=== PATIENT | male | born 1945 | race Caucasian/White ===

== ENCOUNTER 2016-08-10 12:50 | Day surgery (SDC) | payer MEDICARE ==
[2016-08-06 12:36] LABS: HEMATOCRIT 46.5 % (40.0-51.0); HEMOGLOBIN 16.6 g/dL (13.6-17.8)
[2016-08-06 12:45] LABS: BUN (BLOOD UREA NITROGEN) 13 MG/DL (6-23); CALCIUM, SERUM 9.6 MG/DL (8.5-10.4); CHLORIDE, SERUM 109 MMOL/L (96-112); CO2 (CARBON DIOXIDE) 28 MMOL/L (24-34); CREATININE 0.97 MG/DL (0.70-1.30); GFR AFRICAN AMERICAN 91 ML/MIN (>=60); GFR NON AFRICAN AMERICAN 78 ML/MIN (>=60); GLUCOSE, SERUM 93 MG/DL (60-99); SODIUM, SERUM 142 MMOL/L (135-148)
--- NOTE | ~2016-08-10 | OP ---
Record Of Operation [facility] [address] [place]. [address] NAME: KAUSHIK BULLARD JR : 43 STATUS : [facility]#: [id number] AGE: 70 ADM/REG DATE : 08/10/16 MR#: [id number] REPORT SERV DATE: 08/10/16 DICTATED BY: Sania WOLF DATE: 08/10/16 REPORT STATUS : Draft TRANSCRIBED BY: ZE DATE: 08/10/16 DATE OF PROCEDURE: 08/10/2016 PREOPERATIVE DIAGNOSES: 1. Chronic nasal airway obstruction. 2. Deviated nasal septum. 3. Bilateral inferior turbinate hypertrophy. 4. Right nasal vestibular stenosis. POSTOPERATIVE DIAGNOSES: 1. Chronic nasal airway obstruction. 2. Deviated nasal septum. 3. Bilateral inferior turbinate hypertrophy. 4. Right nasal vestibular stenosis. OPERATION: 1. Septoplasty. 2. Bilateral inferior turbinate intramural cautery. 3. Bilateral inferior turbinate outfracture. 4. Repair of right nasal vestibular stenosis. FINDINGS: Deviated septum high to the right; bony and soft tissue hypertrophy of the inferior turbinates; right nasal vestibular stenosis. INDICATIONS: This 70-year-old gentleman has chronic nasal airway obstruction, refractory to medical therapy. He has inferior turbinate hypertrophy, deviated nasal septum and he has right nasal vestibular stenosis. The nasal vestibular stenosis is most likely related to his skin cancer reconstruction nine months ago. The pros and cons, alternatives, benefits, risks, limitations, and complications of septoplasty, inferior turbinate reduction, repair of right nasal vestibular stenosis were discussed at length with the patient. No guarantees expressed. He understands the risk of bleeding, reoperation to control bleeding, continued nasal airway obstruction, infection, imponderables. He wishes to proceed. Proper consent obtained. No guarantees expressed. DESCRIPTION OF PROCEDURE: He was taken into the operating room and given general oral endotracheal anesthesia in the supine position. Sterile drapes were applied. A throat pack was placed. The nose was thoroughly inspected with the nasal speculum as well as with the 0 degree endoscope. The septum was deviated high to the right and also he had a collapsing right nasal valve/nasal vestibular stenosis, both medially and laterally. The inferior turbinates, even though they were topically decongested with oxymetazoline nasal spray in the preop area, were still enlarged. The nose was injected with 0.5% Marcaine with 1:200,000 epinephrine and 1% Xylocaine with 1:100,000 epinephrine. Seven minutes elapsed for vasoconstriction. First, the right nasal vestibular stenosis was addressed. A right intercartilaginous Record Of Operation [facility] [address] [place]. [address] NAME: KAUSHIK BULLARD JR : 43 STATUS : [facility]#: [id number] AGE: 70 ADM/REG DATE : 08/10/16 MR#: [id number] REPORT SERV DATE: 08/10/16 DICTATED BY: Sania WOLF DATE: 08/10/16 REPORT STATUS : Draft TRANSCRIBED BY: ZE DATE: 08/10/16 incision was made. Elevation was carried over the upper lateral cartilage, which was depressed into the nasal cavity. A rotation flap was developed over the upper lateral cartilage. This flap was then rotated caudally and laterally. Redundancy was trimmed off, which involved mucosa as well as redundant upper lateral cartilage. Closure was accomplished with 5-0 interrupted chromic sutures. A rotation flap laterally was trimmed in the area of the lateral ala and closure was accomplished with a back cut and excision and 5- 0 chromic. This opened up the nasal valve nicely. The septum was still deviated high to the right. A left hemitransfixion incision was made and a left mucoperichondrial flap was elevated from the midlevel superiorly. Offending portions of the deviated nasal septum were submucosally resected while still maintaining a 1 cm dorsal nasal-caudal intact bony cartilaginous strut. Portions of cartilage removed were crushed and placed back in nasal septum. The hemitransfixion incision was closed with 5-0 chromic. A quilting suture of 4-0 septal gut was then used to coapt the septal flaps. Jimbo bivalve splints were then placed in each nostril and sutured through and through with a 4-0 Prolene suture. Each inferior turbinate was intramurally cauterized with the needle-tip cautery while visualizing the length of the turbinate with 0-degree scope. Each inferior turbinate was outfractured. Hemostasis was excellent. Blood loss was approximately 5 mL. The airway was excellent. The nasal cavity was treated with a U-shaped Telfa pack, coated in antibacterial appointment. A throat pack was removed and it had no blood on it. The throat was suctioned and it was clear. He tolerated the procedure well. A drip pad was applied. He was awakened, extubated, and taken to the recovery room in good condition having tolerated the procedure well. Home going instructions included standard instruction sheet. He is to remove the packing tomorrow if it is not bleeding. He will then begin his neti pot three times a day. Recheck in the office in six days. Prescriptions were written for generic Phenergan 25 mg pills, #21 p.o. q.4-6h. p.r.n. nausea or vomiting (he takes these before he takes his hydrocodone and he does not get nauseated; otherwise if he takes hydrocodone without the Phenergan, he gets nauseated). Prescriptions were also written for hydrocodone 7.5 mg/325 APAP, #25, one p.o. q.4-6h. p.r.n. pain; cephalexin 500 mg, #20, one p.o. b.i.d., labeled antibiotic; generic Medrol Dosepak, dispense one, take as directed on package to reduce swelling (start 08/11/2016). PABLO/ZE Record Of [address] [place]. [address] NAME: KAUSHIK BULLARD JR : 43 STATUS : [facility]#: [id number] AGE: 70 ADM/REG DATE : 08/10/16 MR#: [id number] REPORT SERV DATE: 08/10/16 DICTATED BY: Sania WOLF DATE: 08/10/16 REPORT STATUS : Draft TRANSCRIBED BY: ZE DATE: 08/10/16 Sania Wolf M.D. / [id number] CC: Nida Rubi M.D.
[~2016-08-10 12:50] MED LIST: ASAB PO; ATV1 PO; COZAAR100 MG PO; K500 PO; NORCO1 TA1 PO; NORV5 PO; PR25 PO; [UNRECOGNIZED DRUG - OTHER] PO
== END 2016-08-10 20:08 | disposition home or self-care (01) ==
LOC: SDC 12:50
PROVIDERS: Specialist
PROC: 09BL0ZZ Excision of Nasal Turbinate, Open Approach (ICD-10-PCS; 2016-08-10)
PROC: 09SL0ZZ Reposition Nasal Turbinate, Open Approach (ICD-10-PCS; 2016-08-10)
PROC: 09QK0ZZ Repair Nasal Mucosa and Soft Tissue, Open Approach (ICD-10-PCS; 2016-08-10)
PROC: 09BM0ZZ Excision of Nasal Septum, Open Approach (ICD-10-PCS; principal; 2016-08-10 14:15)
DX: J34.89 Other specified disorders of nose and nasal sinuses (principal); J34.2 Deviated nasal septum; J34.3 Hypertrophy of nasal turbinates; I10 Essential (primary) hypertension; F41.9 Anxiety disorder, unspecified; F17.290 Nicotine dependence, other tobacco product, uncomplicated; Z85.828 Personal history of other malignant neoplasm of skin; Z79.82 Long term (current) use of aspirin; Z79.899 Other long term (current) drug therapy; Z98.890 Other specified postprocedural states; Z90.49 Acquired absence of other specified parts of digestive tract
CPT/HCPCS: 80048; 85014; 85018; 88300; 93005; A9270-GY; J0690; J2250; J2370; J2405; J2710; J3010